=== PATIENT | female | born 2000 | race Caucasian/White ===

== ENCOUNTER 2020-01-28 14:34 | Outpatient (CLI) | payer BC, SELFPAY ==
--- NOTE | ~2020-01-28 | CT_ITS ---
EXAMINATION: CT abdomen pelvis w con EXAM DATE: 01/28/2020 14:54 INDICATION: Right upper quadrant pain for one week. Diarrhea. Hematochezia. TECHNIQUE: Spiral CT of the abdomen and pelvis was performed following intravenous injection of 100 m L Omnipaque 350. Axial, coronal and sagittal images were reviewed. The dose-length product (DLP) fo r this examination was 170.55 mGy-cm. The exposure was tailored according to patient size (auto mA e xposure control), and iterative reconstruction (ASIR) was used as additional dose reduction technique . There is no prior study for comparison. FINDINGS: The liver, spleen, adrenal glands and pancreas are unremarkable. Gallbladder is unremarkab le. No biliary obstruction. Portal and splenic veins are patent. Kidneys enhance symmetrically. T here is no hydronephrosis. There is IUD which appears to be centrally located within the endometriu m, expected position. The bladder is unremarkable. There is no retroperitoneal or pelvic lymphadeno haider. Possible identification of an unremarkable appendix. No pericecal inflammation. The stomach and smal l bowel are unremarkable. There is expected amount of colonic stool. No free intraperitoneal gas. The heart is normal in size. There are no pericardial or pleural effusions. The lung bases are un remarkable. Mild lumbar dextroscoliosis. IMPRESSION: 1. No acute intra-abdominal findings. Reviewed, dictated and finalized at location B. 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
== END 2020-01-28 14:35 | disposition home or self-care (01) ==
PROVIDERS: PCP Pediatrics; Visit Provider Physician Assistant
DX: R10.84 Generalized abdominal pain (principal)
CPT/HCPCS: 74177; Q9967

== ENCOUNTER 2021-02-19 09:48 | Outpatient (CLI) | payer BC, SELFPAY ==
--- NOTE | ~2021-02-19 | NM_ITS ---
EXAMINATION: NM hepatobiliary wo pharm DATE: 02/19/2021 14:09 INDICATION: Chronic diarrhea of unknown origin. COMPARISON: CT abdomen and pelvis 01/28/2020 TECHNIQUE: 4.5 mCi Tc-99m mebrofenin (Choletec) was administered intravenously. Scintigraphic images of the abdomen were obtained for one hour. Then, the patient drank 8 oz Ensure, and imaging was cont inued for 60 minutes. FINDINGS: There is normal clearance of radiotracer from the blood pool. There is homogeneous tracer u ptake by the liver. Activity progresses to the bowel and gallbladder. Gallbladder ejection fraction (GBEF) was 65%. Note that with this technique, normal GBEF >= 33%. IMPRESSION: 1. Normal hepatobiliary scintigraphy. Reviewed, dictated and finalized at location A. DRIER
== END 2021-02-19 09:49 | disposition home or self-care (01) ==
LOC: ANHIMG 09:52
PROVIDERS: PCP Physician Assistant; Visit Provider Physician Assistant
DX: K52.9 Noninfective gastroenteritis and colitis, unspecified (principal)
CPT/HCPCS: 78226; A9537

== ENCOUNTER 2021-03-17 17:40 | Emergency (ER) | payer BC, SELFPAY ==
[2021-03-17 17:52] VITALS: BP 120/71; PULSE 99; RESP 20; TEMP 36.9; O2SAT 100
[2021-03-17 21:08] VITALS: BP 125/80; PULSE 70; RESP 16; TEMP 36.4; O2SAT 100
[2021-03-17 22:14] LABS: Basophils Absolute Auto 0.1 K/mm3 (0.0-0.1); Basophils Percent Auto 0.9 % (0.2-1.2); Eosinophils Absolute Auto 0.1 K/mm3 (0-0.3); Eosinophils Percent Auto 2.2 % (0-4.4); Hematocrit 33.5 % (37.0-47.0); Hemoglobin 11.6 g/dL (12.0-15.0); Immature Granulocyte Absolute 0.05 K/mm3 (0.00-0.031); Immature Granulocyte Percent A 0.8 % (0-0.5); Lymphocytes Absolute Auto 2.41 K/mm3 (0.9-3.2); Lymphocytes Percent Auto 38.1 % (18.3-44.2); Mean Corpuscular HGB Conc 34.6 g/dl (32-36); Mean Corpuscular Hemoglobin 30.8 pg (26-34); Mean Corpuscular Volume 88.9 fl (80-100); Mean Platelet Volume 12.2 fl (7.4-10.4); Monocytes Absolute Auto 0.5 K/mm3 (0.1-0.6); Monocytes Percent Auto 7.4 % (2.6-8.5); Neutrophils Absolute Auto 3.2 K/mm3 (1.3-6.7); Neutrophils Percent Auto 50.6 % (45.5-73.1); Platelet Count Result 104 k/mm3 (150-375); Red Blood Count 3.77 M/mm3 (4.2-5.4); White Blood Count 6.3 K/mm3 (4.5-10.0)
[2021-03-17 22:26] LABS: Alanine Aminotransferase 41 U/L (4-35); Alkaline Phosphatase 58 U/L (38-126); Anion Gap 10 mmol/L (8-16); Aspartate Amino Transferase 50 U/L (14-36); Bilirubin,Total 0.8 mg/dL (0.2-1.3); Blood Urea Nitrogen 10 mg/dL (7-17); Calcium 8.8 mg/dL (8.4-10.2); Carbon Dioxide 23 mmol/L (22-30); Chloride 103 mmol/L (98-107); Estimated CRCL calculation 99 ml/min; Estimated Glomerular Filt Rate > 60; Glucose 90 mg/dL (65-110); Lipase 94 U/L (23-300); Potassium 3.4 mmol/L (3.4-5.0); Sodium 136 mmol/L (137-145)
[2021-03-17] MEDS: KETOROLAC 30 MG/ML VIAL (*BKC) IV PUSH (22:50)
[2021-03-17 22:53] VITALS: BP 118/72; PULSE 60; RESP 16; O2SAT 100
[2021-03-18 00:24] VITALS: BP 114/64; PULSE 74; RESP 16; O2SAT 99
[2021-03-18] MEDS: SODIUM CHLORIDE 0.9% IV 1,000 ML 999 ML IV CONT (00:39)
--- NOTE | 2021-03-18 01:12 | ED.ABDPAIN ---
HPI - Abdominal Pain General Chief Complaint: Abdominal Pain Stated Complaint: fever, abdominal pain Time Seen by Provider: 03/17/21 21:42 Source: patient Mode of arrival: ambulatory Limitations: no limitations History of Present Illness HPI narrative: 21-year-old otherwise healthy. Here with complaints of lower abdominal pain for past few days. She is also states that she has been having fever for past 1 week on and off. T-max was 101 .2. She denies any cough or shortness of breath. No history of nausea or vomiting. She denies urinary symptoms. However she has thick vaginal discharge. She states that she has IUD ,her OB is Dr. Mukesh Silva . elicited complaint: abdominal pain Onset (ago): week(s) Pain Consistency: constant Location: suprapubic Severity: moderate Quality: aching Radiation: none Migration to: no migration Exacerbating factors: nothing Relieving factors: nothing Related Data Allergies Allergy/AdvReac Type Severity Reaction Status Date / Time No Known Allergies Allergy Unverified 03/17/21 21:15 Review of Systems Review of Systems: All systems reviewed & are unremarkable except as noted in HPI and below Constitutional: Constitutional: Reports no additional constitutional complaints Eyes: Eyes: Reports no additional eye complaints ENT: Reports system reviewed and no additional complaints, except as documented Cardiovascular: Cardiovascular: Reports no additional cardiovascular complaints Respiratory: Respiratory: Reports no additional respiratory complaints Gastrointestinal: Gastrointestinal: Reports as per HPI Genitourinary: Genitourinary: Reports as per HPI Musculoskeletal: Musculoskeletal: Reports no additional musculoskeletal complaints Integumentary/Breasts: Skin/Breast: Reports system reviewed and no additional complaints, except as docu Neurologic: Reports system reviewed and no additional complaints, except as documented Exam Narrative: GENERAL: Well-appearing, well-nourished, and in no acute distress. HEAD: Normocephalic, atraumatic. EYES: PERRLA and EOMI. NECK: Supple. CHEST: Clear to auscultation. No respiratory distress. HEART: Regular rate and rhythm. No murmur heard. Normal peripheral pulses. ABDOMEN: Soft, nontender, nondistended, normal active bowel sounds. Pelvic Normal labia , thick yellow discharge in the vaginal vault. EXTREMITIES: Normal range of motion. No edema. SKIN: Warm, dry, no rash. NEURO: No focal deficits. Alert and oriented x3. PSYCH: Normal mood and affect. Course Vital Signs Vital signs: Vital Signs Temperature 36.9 C 03/17/21 17:52 Pulse Rate 99 03/17/21 17:52 Respiratory Rate 20 03/17/21 17:52 Blood Pressure 120/71 03/17/21 17:52 Pulse Oximetry 100 03/17/21 17:52 Temperature 36.4 C L 03/17/21 21:08 Pulse Rate 74 03/18/21 00:24 Respiratory Rate 16 03/18/21 00:24 Blood Pressure 114/64 03/18/21 00:24 Pulse Oximetry 99 03/18/21 00:24 MDM - Abdominal Pain Lab Data Result diagrams: 03/17/21 21:53 03/17/21 21:53 Labs: Lab Results 03/17/21 03/17/21 03/18/21 Range/Units 21:53 21:53 00:54 WBC 6.3 (4.5-10.0) K/mm3 RBC 3.77 L (4.2-5.4) M/mm3 Hgb 11.6 L (12.0-15.0) g/dL Hct 33.5 L (37.0-47.0) % MCV 88.9 (80-100) fl MCH 30.8 (26-34) pg MCHC 34.6 (32-36) g/dl RDW 13.0 (11.5-14.5) % Plt Count 104 L (150-375) k/mm3 MPV 12.2 H (7.4-10.4) fl Immature Gran % (Auto) 0.8 H (0-0.5) % Neut % (Auto) 50.6 (45.5-73.1) % Lymph % (Auto) 38.1 (18.3-44.2) % [place] % (Auto) 7.4 (2.6-8.5) % Eos % (Auto) 2.2 (0-4.4) % Baso % (Auto) 0.9 (0.2-1.2) % Lymph # (Auto) 2.41 (0.9-3.2) K/mm3 [place] # (Auto) 0.5 (0.1-0.6) K/mm3 Eos # (Auto) 0.1 (0-0.3) K/mm3 Baso # (Auto) 0.1 (0.0-0.1) K/mm3 Abs Immat Gran (auto) 0.05 H (0.00-0.031) K/mm3 Absolute Neuts (auto) 3.2 (1.3-6.7) K/mm3 Absolute Nucleated R
[2021-03-18 01:46] VITALS: BP 123/82; PULSE 61; RESP 61; O2SAT 100
== END 2021-03-18 01:50 | disposition home or self-care (01) ==
PROVIDERS: Emergency Medicine; Emergency Provider Family Medicine; PCP Physician Assistant
DX: N73.9 Female pelvic inflammatory disease, unspecified (principal)
CPT/HCPCS: 36415; 80053; 81025; 83690; 85025; 87491; 87591; 96365; 96375; 99284; J0696; J1885; J7030

== ENCOUNTER 2021-03-18 20:47 | Emergency (ER) | payer BC, SELFPAY ==
--- NOTE | ~2021-03-18 | CT_ITS ---
EXAMINATION: CT abdomen pelvis w con DATE: 03/19/2021 02:21 INDICATION: Right lower quadrant abdominal pain. TECHNIQUE: Computed tomography (CT) of the abdomen and pelvis was performed with 100 mL Omnipaque 350 intravenous contrast. Automated exposure control and iterative reconstruction technique were employe d. The dose-length product was 239.14 mGy-cm. COMPARISON: CT abdomen and pelvis 01/28/2020 FINDINGS: The visualized portions of the lung bases demonstrate mild atelectasis in the right. No ple ural effusion. The heart size is normal. No pericardial effusion. There is periportal edema in the li papo. The gallbladder is normal. There is mild splenomegaly. The pancreas, adrenal glands, and kidneys are normal. There is an intrauterine device in expected position. There are no dilated loops of lisa l. The appendix is normal. There is a small volume of ascites. There is a 3.4 cm rim-enhancing corpus luteum cyst in right ovary. There are no pathologically enlarged lymph nodes. There is dextroscolios is of lumbar spine. IMPRESSION: 1. 3.4 cm corpus luteum cyst in right ovary. 2. Small volume of ascites. 3. Mild splenomegaly, new from 01/28/2020. Reviewed, dictated and finalized at location B. 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
--- NOTE | ~2021-03-18 | US_ITS ---
EXAMINATION: US pelvic complete w TV EXAM DATE: 03/19/2021 01:35 INDICATION: Right pelvic pain. Torsion . TECHNIQUE: Pelvic transabdominal and transvaginal sonogram was performed. There are multiple graysca le and Doppler images available for interpretation. There is no prior study for comparison. FINDINGS: Uterus measures 8.0 x 4.8 x 3.9 cm, is anteverted and morphologically normal with IUD cent rally located in the endometrial canal. Endometrial stripe measures 6 mm, within normal limits. The re is moderate free pelvic fluid. Right adnexa: The ovary measures 1.5 x 3.0 x 2.5 cm and is morphologically normal. Ovarian vascular f low confirmed. Left adnexa: The ovary measures 2.2 x 2.1 x 2.2 cm and is morphologically normal. Ovarian vascular fl ow confirmed. IMPRESSION: Moderate amount of free pelvic fluid, could be from recently ruptured physiologic or hemo rrhagic cyst. Morphologically normal ovaries. IUD in position. Reviewed, dictated and finalized at location A. 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 Morphologically normal ovaries. IUD in posi tion.
[2021-03-18 20:49] VITALS: BP 123/77; PULSE 114; RESP 20; TEMP 36.7; O2SAT 100
[2021-03-18 22:30] VITALS: BP 112/67; PULSE 80; RESP 20; O2SAT 100
--- NOTE | 2021-03-18 23:08 | ED.ABDPAIN ---
HPI - Abdominal Pain General Chief Complaint: Abdominal Pain <Sonya Vazquez MD - Last Filed: 03/19/21 02:09> Stated Complaint: abd pain <Sonya Vazquez MD - Last Filed: 03/19/21 02:09> Time Seen by Provider: 03/18/21 22:30 <Sonya Vazquez MD - Last Filed: 03/19/21 02:09> Source: patient, RN notes reviewed and old records reviewed <Sonya Vazquez MD - Last Filed: 03/19/21 02:09> Mode of arrival: ambulatory <Sonya Vazquez MD - Last Filed: 03/19/21 02:09> Limitations: no limitations <Sonya Vazquez MD - Last Filed: 03/19/21 02:09> History of Present Illness HPI narrative: This is 21 year old female who presents for evaluation of right lower abdominal pain. She has been having intermittent lower abdominal pain for over 1 week with fever. She was evaluated in ER yesterday and her labs were unremarkable. She was discharged with diagnosis of PID And she was started on antibiotics. She was also evaluated by her gynecology clinic today . She has returned to ER because she developed worsening right lower abdominal pain tonight around 7 pm. She reports her pain is severe and it is worsened with movement of her right leg. She has nausea but denies vomiting. She reports she always has abnormal vaginal discharged. She also reports having temperature 100 F tonight. She is taking ibuprofen 400 mg and tylenol 500 mg for her pain. Her last dose of ibuprofen was at 7 pm and she took tylenol this morning. <Sonya Vazquez MD - Last Filed: 03/19/21 02:09> Related Data Allergies/Adverse Reactions: Allergies Allergy/AdvReac Type Severity Reaction Status Date / Time No Known Allergies Allergy Unverified 03/17/21 21:15 <Sonya Vazquez MD - Last Filed: 03/19/21 02:09> Review of Systems Review of Systems: All systems reviewed & are unremarkable except as noted in HPI and below <Sonya Vazquez MD - Last Filed: 03/19/21 02:09> [facility] Past Medical History Medical History: Medical History (Updated 03/19/21 @ 03:07 by Shahriar Perez MD) Patient denies medical problems <Sonya Vazquez MD - Last Filed: 03/19/21 02:09> Surgical History Surgical History: Surgical History (Updated 03/18/21 @ 23:18 by Sonya Vazquez MD) No pertinent past surgical history <Sonya Vazquez MD - Last Filed: 03/19/21 02:09> Exam Const: General: alert <Sonya Vazquez MD - Last Filed: 03/19/21 02:09> Orientation/consciousness: patient oriented x3 <Sonya Vazquez MD - Last Filed: 03/19/21 02:09> Eyes: EOM: EOMs intact bilaterally <Sonya Vazquez MD - Last Filed: 03/19/21 02:09> Chest: Chest palpation & inspection: normal inspection of the chest <Sonya Vazquez MD - Last Filed: 03/19/21 02:09> Resp: Effort & Inspection: normal respiratory effort and no retractions <Sonya Vazquez MD - Last Filed: 03/19/21 02:09> Auscultation: clear to auscultation bilaterally <Sonya Vazquez MD - Last Filed: 03/19/21 02:09> Cardio: Rate: regular rate <Sonya Vazquez MD - Last Filed: 03/19/21 02:09> Rhythm: regular rhythm <Sonya Vazquez MD - Last Filed: 03/19/21 02:09> Heart sounds: no murmurs <Sonya Vazquez MD - Last Filed: 03/19/21 02:09> GI: GI Palp: Yes Soft to palpation, Yes Tenderness to palpation present (GI) (RLQ), No Guarding due to palpation present (GI) and No Rigid due to palpation <Sonya Vazquez MD - Last Filed: 03/19/21 02:09> Auscultation: normal bowel sounds <Sonya Vazquez MD - Last Filed: 03/19/21 02:09> : General: Yes no CVA tenderness <Sonya Vazquez MD - Last Filed: 03/19/21 02:09> Skin: General skin exam: normal color <Sonya Vazquez MD - Last Filed: 03/19/21 02:09> Rashes: no rashes <Sonya Vazquez MD - Last Filed: 03/19/21 02:09> Neuro: General: patient oriented x3, moves all extremities and CN's II-XI intact bilaterally <Sonya Vazquez MD - Last Filed: 03/19/21
[2021-03-18] MEDS: SODIUM CHLORIDE 0.9% IV 1,000 ML 999 ML IV CONT (23:17)
[2021-03-18] MEDS: KETOROLAC 30 MG/ML VIAL (*BKC) IV PUSH (23:18)
[2021-03-18] MEDS: ONDANSETRON INJ 4 MG/2 ML VIAL IV PUSH (23:18)
[2021-03-18 23:49] LABS: Basophils Absolute Auto 0.1 K/mm3 (0.0-0.1); Basophils Percent Auto 0.8 % (0.2-1.2); Eosinophils Absolute Auto 0.1 K/mm3 (0-0.3); Eosinophils Percent Auto 1.2 % (0-4.4); Hematocrit 32.4 % (37.0-47.0); Hemoglobin 11.1 g/dL (12.0-15.0); Immature Granulocyte Absolute 0.03 K/mm3 (0.00-0.031); Immature Granulocyte Percent A 0.5 % (0-0.5); Lymphocytes Absolute Auto 2.39 K/mm3 (0.9-3.2); Lymphocytes Percent Auto 40.1 % (18.3-44.2); Mean Corpuscular HGB Conc 34.3 g/dl (32-36); Mean Corpuscular Hemoglobin 30.7 pg (26-34); Mean Corpuscular Volume 89.8 fl (80-100); Mean Platelet Volume 12.1 fl (7.4-10.4); Monocytes Absolute Auto 0.4 K/mm3 (0.1-0.6); Neutrophils Percent Auto 50.4 % (45.5-73.1); Platelet Count Result 114 k/mm3 (150-375); Red Blood Count 3.61 M/mm3 (4.2-5.4); Red Cell Distribution Width 12.8 % (11.5-14.5)
[2021-03-18 23:58] LABS: Alanine Aminotransferase 41 U/L (4-35); Albumin Level 3.8 g/dL (3.5-5.1); Alkaline Phosphatase 58 U/L (38-126); Anion Gap 9 mmol/L (8-16); Aspartate Amino Transferase 48 U/L (14-36); Bilirubin,Total 0.6 mg/dL (0.2-1.3); Blood Urea Nitrogen 11 mg/dL (7-17); Calcium 8.8 mg/dL (8.4-10.2); Carbon Dioxide 23 mmol/L (22-30); Chloride 104 mmol/L (98-107); Estimated CRCL calculation 113 ml/min; Estimated Glomerular Filt Rate > 60; Glucose 90 mg/dL (65-110); Lipase 72 U/L (23-300); Potassium 3.8 mmol/L (3.4-5.0); Sodium 136 mmol/L (137-145)
[2021-03-19 01:31] VITALS: BP 86/53; PULSE 71; RESP 16; O2SAT 100
[2021-03-19 01:41] LABS: Add Urine Microscopic? NO; Appearance Urine Clear (Clear); Bilirubin Urine Negative (Negative); Blood Urine Negative (Negative); Color Urine Yellow (Yellow); Glucose Urine UA Negative (Negative); Ketones Urine Negative (Negative); Leukocyte Esterase Ur Negative LEU/UL (Negative); Nitrate Urine Negative (Negative); Protein Urine Negative (Negative); Urobilinogen Urine Negative mg/dL (<2.0)
[2021-03-19] MEDS: HYDROmorphone HCL INJ (*CRX) 1 MG/ML SYR 0.5 MG IV PUSH (02:00)
[2021-03-19] MEDS: LACTATED RINGERS 1,000 ML 999 ML IV CONT (02:01)
[2021-03-19 02:38] VITALS: BP 107/73; PULSE 81; RESP 16; O2SAT 100
[2021-03-19] MEDS: ONDANSETRON INJ 4 MG/2 ML VIAL IV PUSH (02:38)
[2021-03-19 03:30] VITALS: BP 96/58; PULSE 77; RESP 16; O2SAT 100
== END 2021-03-19 03:31 | disposition home or self-care (01) ==
PROVIDERS: General Practice; Emergency Provider Emergency Medicine; PCP Physician Assistant
DX: N83.11 Corpus luteum cyst of right ovary (principal); R10.31 Right lower quadrant pain; R10.2 Pelvic and perineal pain; Z97.5 Presence of (intrauterine) contraceptive device; R16.1 Splenomegaly, not elsewhere classified; R18.8 Other ascites
CPT/HCPCS: 36415; 74177; 76830; 76856; 80053; 81003; 81025; 83690; 85025; 96361; 96374; 96375; 96376; 99284; J1170; J1885; J2405; J7030; J7120; Q9967